=== PATIENT | male | born 1975 | race Caucasian/White ===

== ENCOUNTER 2020-02-20 08:28 | Outpatient (CLI) | payer OTHER | END 2020-02-20 08:29 | disposition home or self-care (01) | LOC: LAB.S 08:28 | DX: Z95.2 Presence of prosthetic heart valve (principal) | CPT/HCPCS: 85610 ==

== ENCOUNTER 2020-03-19 09:09 | Outpatient (CLI) | payer OTHER | END 2020-03-19 09:10 | disposition home or self-care (01) | LOC: LAB.S 09:09 | PROVIDERS: ATTEND Nuclear Medicine Nuclear Cardiology | DX: Z95.2 Presence of prosthetic heart valve (principal) | CPT/HCPCS: 85610 ==

== ENCOUNTER 2020-03-28 10:17 | Outpatient (CLI) | payer OTHER | END 2020-03-28 10:18 | disposition home or self-care (01) | LOC: LAB.S 10:17 | PROVIDERS: ATTEND Nuclear Medicine Nuclear Cardiology | DX: Z95.2 Presence of prosthetic heart valve (principal) | CPT/HCPCS: 85610 ==

== ENCOUNTER 2020-04-25 08:49 | Outpatient (CLI) | payer OTHER | END 2020-04-25 08:50 | disposition home or self-care (01) | LOC: LAB.S 08:49 | PROVIDERS: ATTEND Nuclear Medicine Nuclear Cardiology | DX: Z95.2 Presence of prosthetic heart valve (principal) | CPT/HCPCS: 85610 ==

== ENCOUNTER 2020-05-24 09:49 | Outpatient (CLI) | payer OTHER | END 2020-05-24 09:50 | disposition home or self-care (01) | LOC: LAB.S 09:49 | PROVIDERS: ATTEND Nuclear Medicine Nuclear Cardiology | DX: Z95.2 Presence of prosthetic heart valve (principal) | CPT/HCPCS: 85610 ==

== ENCOUNTER 2020-06-21 10:06 | Outpatient (CLI) | payer OTHER | END 2020-06-21 10:07 | disposition home or self-care (01) | LOC: LAB.S 10:06 | PROVIDERS: ATTEND Nuclear Medicine Nuclear Cardiology | DX: Z95.2 Presence of prosthetic heart valve (principal) | CPT/HCPCS: 85610 ==

== ENCOUNTER 2020-07-02 08:41 | Outpatient (CLI) | payer OTHER | END 2020-07-02 08:42 | disposition home or self-care (01) | LOC: LAB.S 08:41 | PROVIDERS: ATTEND Nuclear Medicine Nuclear Cardiology | DX: Z95.2 Presence of prosthetic heart valve (principal) | CPT/HCPCS: 85610 ==